=== PATIENT | female | born 1955 | race Caucasian/White ===

== ENCOUNTER → 2017-07-12 | Outpatient (CLI) | payer BC ==
[~2017-07-12] MED LIST: DYRENIUM 50MG C50 MG PO; RT ADVAIR 228 DISKUS IH; VENTOLIN0.09 MG IH; WELLBUTRIN SR150 M1 PO; ZITHROMAX 250M250 MG PO; ZOCOR5 MG PO
== END ==
LOC: MC.RAD 15:20
DX: Z12.31 Encounter for screening mammogram for malignant neoplasm of breast (principal)

== ENCOUNTER → 2019-09-24 | Outpatient (CLI) | payer BC | LOC: MC.RAD 08:43 | DX: Z12.31 Encounter for screening mammogram for malignant neoplasm of breast (principal) ==

== ENCOUNTER → 2020-12-31 | Outpatient (CLI) | payer MEDICARE | LOC: COL.RAD 07:28 | DX: I70.0 Atherosclerosis of aorta (principal) ==

== ENCOUNTER → 2021-01-19 | Outpatient (CLI) | payer MEDICARE | LOC: MC.RAD 08:39 | DX: Z12.31 Encounter for screening mammogram for malignant neoplasm of breast (principal) ==